=== PATIENT | female | born 1945 | race Hispanic/Latino ===

== ENCOUNTER 2024-02-22 10:22 | Observation (INO) | payer OTHER ==
[2024-02-21 11:16] LABS: Absolute Eosinophils 0.2 K/uL (0-0.5); Absolute Lymphocytes (CBC) 1.9 K/uL (0.7-4.9); Absolute Monocytes 0.4 K/uL (0.1-1.3); Absolute Neutrophil 4.2 K/uL (1.8-8.0); Basophils % 0.7 % (0-1.3); Eosinophils % 2.7 % (0-4.4); Hematocrit 40.3 % (36.0-45.0); Hemoglobin 13.3 g/dL (12.0-15.0); Lymphocytes % 28.5 % (15.3-44.8); MCH 29.4 pg (27.0-35.0); MCHC 33.1 g/dL (32.0-36.0); MCV 88.9 fL (80-100); MPV 8.5 fL (7.6-11.3); Monocytes % 6.1 % (3.3-12.3); Platelets 283 thou/uL (152-406); RBC Red Blood Cell Count 4.53 M/uL (3.86-4.86); Red Cell Distribution Width 13.9 % (12.1-15.2)
[2024-02-21 11:35] LABS: Specific Gravity 1.025 (1.005-1.030); Urine Bacteria None Seen /HPF (<20); Urine Bilirubin NEGATIVE (Negative); Urine Blood 1+ (Negative); Urine Clarity Extremely Turbid (Clear); Urine Color Yellow (Yellow); Urine Culture Reflex Order NOT NEEDED; Urine Glucose NEGATIVE (Negative); Urine Ketones NEGATIVE (Negative); Urine Microscopic Reflex YN ORDER UMIC; Urine Mucus 2+ /HPF (None Seen); Urine Nitrite NEGATIVE (Negative); Urine Protein TRACE (Negative); Urine Urobilinogen Normal (Normal); Urine WBC <5 /HPF (<5); Urine pH 5.5 (5.0-7.0)
[2024-02-21 11:39] LABS: Anion Gap 5.1 mEq/L (5.0-15.0); Potassium 4.1 mEq/L (3.5-5.1)
[2024-02-21 12:08] LABS: PT Prothrombin Time 12.1 SECONDS (9.5-12.5); Protime INR 1.1
--- NOTE | 2024-02-21 12:32 | EKG ---
Test Date: 2024-02-21 Test Time: 10:49:33 Fabric Lay Out Worker: TAYLOR MEASUREMENT RESULTS: Intervals: Rate: 74 NE: 146 QRSD: 80 QT: 378 QTc: 419 [place]: P: 56 NE: 146 QRS: -3 T: 32 INTERPRETIVE STATEMENTS: Normal sinus rhythm Possible Anterior infarct, age undetermined Abnormal ECG Compared to ECG 12/30/2016 09:24:44 Myocardial infarct finding now present Electronically Signed On 02-21-24 12:32:13 CDT by Bernard Boucher
[2024-02-22] MEDS: CEFAZOLIN SODIUM 1 GM/VIAL ONE (10:41)
[2024-02-22] MEDS: LIDOCAINE HCL/EPINEPHRINE 20 ML MDV ONE (10:41)
[2024-02-22] MEDS: Ringers Lactate 1,000 ML IV ONE ×2 (10:45→12:57)
[2024-02-22] MEDS: SCOPOLAMINE HYDROBROMIDE PATCH TD ONE (10:48)
[2024-02-22] MEDS ORDERED: LIDOCAINE 1% MPF 5 ML VIAL ONE (10:54)
[2024-02-22] MEDS ORDERED: dexAMETHasone 10 MG/ML VIAL ONE (10:54)
[2024-02-22] MEDS ORDERED: MIDAZOLAM HCL 2 MG/2 ML INJ ONE (10:54)
[2024-02-22] MEDS ORDERED: propofoL 200 MG/20 ML VIAL IV ONE (10:54)
[2024-02-22] MEDS ORDERED: FENTANYL CITR 100 MCG/2 ML ONE ×2 (10:54→13:05)
[2024-02-22] MEDS ORDERED: KETAMINE HCL IN 0.9 % NACL 50 MG/5 ML SYRINGE IV ONE (10:54)
[2024-02-22] MEDS ORDERED: ONDANSETRON 4 MG/2 ML VIAL ONE (10:54)
[2024-02-22] MEDS ORDERED: ROCURONIUM 50 MG/5 ML VIAL IV ONE (10:54)
[2024-02-22] MEDS: CEFAZOLIN SODIUM 2 GM/VIAL ONE (11:14)
[2024-02-22] MEDS: VASOPRESSIN 20 UNIT/ML VIAL ONE ×2 (11:15→11:23)
[2024-02-22] MEDS: NA CHLORIDE 0.9% 100 ML ONE (11:27)
[2024-02-22] MEDS ORDERED: EPHEDRINE SULF 50 MG/ML VIAL ONE (13:37)
[2024-02-22] MEDS ORDERED: ONDANSETRON 4 MG/2 ML VIAL IV PRN (15:32)
[2024-02-22] MEDS ORDERED: MORPHINE 2 MG/ML SYR IV PRN (15:32)
[2024-02-22] MEDS ORDERED: ACETAMINOPHEN 500 MG TAB PO PRN (15:32)
[2024-02-22] MEDS ORDERED: PROMETHAZINE INJ 25 MG/ML AMP IV PRN (15:32)
[2024-02-22] MEDS ORDERED: HYDROCODONE/APAP 5/325 MG TAB PO PRN (15:32)
--- NOTE | 2024-02-22 15:41 | P.BOP ---
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/YUMIKO Postoperative diagnosis: Same, posterior enterocele and perineocele Primary procedure: Anterior approach b/l SSLF cervical colpopexy,Ant repair w/biologic graft Secondary procedure: postwall/enterocele/perineocele repairs, TVT-O cyst Financial Accounting Manager: Capri Mcclure Estimated blood loss: 100 Specimen: None Findings: POP Q: +1/+2/0/6/moderate/10/0/-1/-4, perineocele, cysto neg Anesthesia: General Complications: None Drain(s): Urinary catheter, Other (vag pack) Implants: [place] dermis graft, TVT O Fluids & blood products: 1500 fluid, urine output 100 Transferred to: Recovery Room Condition: Good
--- OUTSIDE RECORDS SUMMARY | 2024-02-22 16:34 | XMS REPORT | Continuity of Care Document ---
Author Name Unknown Address [address] [place] [address] [address] [phone] [facility] thconnect Address [address] [facility] [address] [place] [address] Care Team Providers Care Hide Shaker Name Role Phone GC_GCBZW_Kadiyala_S Attending Clinician Kevin malone GC_GCBZW_Kadijenniea_S Admitting Clinician Kevin malone Payers Payer Name Policy Type Policy Number Effective Date Expirati on Date Source [employer] (MEDICARE REPLACEMENT/ADVANTAGE - PPO) [id number] Problems Condition Name Condition Details Condition Category Status Onset Date Resolution Date Last Treatment Date Treating Clinician Comments Source Cystocele Cystocele Problem Active 02-01 00:00: 00 [facility] Atrophic vaginitis Atrophic Vaginitis Problem Active 02-01 00:00: 00 [facility] Intertrigo Intertrigo Problem Active 02-01 00:00: 00 [facility] Osteoporos is Osteoporos is Problem Active 02-01 00:00: 00 [facility] Urge incontinen ce of urine Urge Incontinen ce of Urine Problem Active 02-01 00:00: 00 [facility] Social History Smoking Status Start Date Stop Date Source Never Smoker [facility] Medications Ordered Medication Name Filled Medication Name Start Date Stop Date Current Medication? Ordering Clinician Indication Dosage Frequency Signature (SIG) Comments Components Source estradiol 0.01% (0.1 mg/gram) vaginal cream Insert 0.5 g every day by vaginal route at bedtime for 90 days. estradiol 0.01% (0.1 mg/gram) vaginal cream Insert 0.5 g every day by vaginal route at bedtime for 90 days. No .5g Q1D estradiol 0.01% (0.1 mg/gram) vaginal cream Insert 0.5 g every day by vaginal route at bedtime for 90 days. [facility] Myrbetriq 50 mg tablet,exte nded release Take 1 tablet every day by oral route for 30 days. Myrbetriq 50 mg tablet,exte nded release Take 1 tablet every day by oral route for 30 days. No 1 Q1D Myrbetriq 50 mg tablet,ext ended release Take 1 tablet every day by oral route for 30 days. [facility] Flagyl 500 mg tablet Take 1 tablet every 12 hours by oral route for 7 days. Flagyl 500 mg tablet Take 1 tablet every 12 hours by oral route for 7 days. No 1 Q12H Flagyl 500 mg tablet Take 1 tablet every 12 hours by oral route for 7 days. [facility] gabapentin 100 mg capsule Take 1 capsule 3 times a day by oral route. gabapentin 100 mg capsule Take 1 capsule 3 times a day by oral route. No 1capsul e(s) TID gabapentin 100 mg capsule Take 1 capsule 3 times a day by oral route. [facility] levothyroxi ne 75 mcg tablet Take 1 tablet every day by oral route. levothyroxi ne 75 mcg tablet Take 1 tablet every day by oral route. No 1 Q1D levothyrox ine 75 mcg tablet Take 1 tablet every day by oral route. [facility] montelukast 10 mg tablet Take 1 tablet every day by oral route. montelukast 10 mg tablet Take 1 tablet every day by oral route. No 1 Q1D montelukas t 10 mg tablet Take 1 tablet every day by oral route. [facility] nystatin 100,000 unit/gram topical cream APPLY TO THE AFFECTED AREA(S) BY TOPICAL ROUTE 2 TIMES PER DAY nystatin 100,000 unit/gram topical cream APPLY TO THE AFFECTED AREA(S) BY TOPICAL ROUTE 2 TIMES PER DAY No nystatin 100,000 unit/gram topical cream APPLY TO THE AFFECTED AREA(S) BY TOPICAL ROUTE 2 TIMES PER DAY [facility] Vital Signs Vital Name Observation Time Observation Value Comments S ource BP Systolic 2024-02-06 00:00:00 164 mm[Hg] [facility] Body Weight 2024-02-06 00:00:00 162 [lb_av] [facility] BMI (Body Mass Index) 2024-02-06 00:00:00 29.6 kg/m2 [facility] Height 2024-02-06 00:00:00 62 [in_i] [facility] BP Diastolic 2024-02-06 00:00:00 82 mm[Hg] [facility] Height 2024-01-24 00:00:00 62 [in_i] [facility] BP Systolic 2024-01-24 00:00:00 167 mm[Hg] [facility] BP Diastolic 2024-01-24 00:00:00 88 mm[Hg] [facility] Body Weight 2024-01-24 00:00:00 162.6 [lb_av] [facility] BMI (Body Mass Index) 2024-01-24 00:00:00 29.7 kg/m2 [facility] Procedures Procedure Date / Time Performed Performing Clinicia n Source Transvaginal Us Non-ob 2024-02-02 00:00:00 [facility] US, transvaginal 2024-02-02 00:00:00 [facility] DEXA 2024-01-24 00:00:00 [facility] MAMMO, screening, digital, bilateral 2024-01-24 00:00:00 [facility] Radionuclide Scan of [place] Lymph Node of Breast 1997-11-13 00:00:00 [facility] Division of Varicose Vein of Lower Limb [facility] Cholecystectomy (Gallbladder) [facility] Plan of Care Planned Activity Planned Date Details Comments Source Future Appointment 2024-04-05 14:00:00 Lashon cuellar, [address], [place] [phone] [facility] Future Appointment 2024-02-29 09:30:00 Negar bustos, [address], [address] Medical Future Appointment 2024-02-26 08:30:00 Gcbzw Gcb shantel Law, [address], [place] [phone] [facility] Encounters Start Date/Time End Date/Time Encounter Type Admission Type Attending Clinicians Care Facility Care Department Encounter ID Source 2024-02-20 00:00:00 2024-02-20 00:00:00 Lashon Cope MD: [address], [place] [address] , Ph. GC_GCBZW_Roro jimenez_S [facility]_GCBZW_Evita rowe [place]* [id number] [facility] 2024-02-18 00:00:00 2024-02-18 00:00:00 Outpatient GC_GCBZW_Ka diyala_S [facility] [id number] [facility] 2024-02-13 00:00:00 2024-02-13 00:00:00 PARADISE Colin: [address], [place] [address] , Ph. GC_GCBZW_Ka diyala_S [facility] - GC_GCBZW_Evita rowe [place]* [id number] [facility] 2024-02-06 00:00:00 2024-02-06 00:00:00 Lashon Cope MD: [address], [place] [phone] , Ph. GC_GCBZW_Ka diyala_S [facility] - GC_GCBZW_Evita [facility]* [id number] [facility] 2024-02-02 00:00:00 2024-02-02 00:00:00 Lashon Cope MD: [address], [place] [phone] , Ph. GC_GCBZW_Ka diyala_S [facility] - GC_GCBZW_[facility]* [id number] [facility] 2024-01-29 00:00:00 2024-01-29 00:00:00 Outpatient GC_GCBZW_Ka diyala_S [facility] [id number] [facility] 2024-01-24 00:00:00 2024-01-24 00:00:00 PARADISE Colin: [address], [place] [phone] , Ph. GC_GCBZW_Ka diyala_S [facility] - GC_GCBZW_Evita [place]* [id number] [facility] 2024-01-24 00:00:00 2024-01-24 00:00:00 PARADISE Colin: [address], [place] [address] , Ph. [facility] - GC_GCBZW_Evita [place]* [id number] [facility] 2024-01-15 00:00:00 2024-01-15 00:00:00 Outpatient GC_GCBZW_Ka diyala_S [facility] PRIV [id number] [facility] 2024-01-11 00:00:00 2024-01-11 00:00:00 Outpatient GC_GCBZW_Ka diyala_S [facility] PRIV [id number] [facility] 2023-09-11 00:00:00 2023-09-11 00:00:00 Outpatient GC_GCBZW_Ka diyala_S [facility] PRIV [id number] [facility] Results Test Description Test Time Test Comments Results Result Co mments Source [facility] (dipstick) panel - [id number] 14:53:23* Test Item Value Reference Range Interpretation Comme nts Leukocytes (test code = Leukocytes) Negative Nitrite (test code = Nitrite) negative Urobilinogen (test code = Urobilinogen) Normal Protein (test code = Protein) Negative pH (test code = pH) 5.0 Blood (test code = Blood) Negative Specific [place] (test code = Specific [place]) 1.000 Ketone (test code = Ketone) Negative Bilirubin (test code = Bilirubin) Negative Glucose (test code = Glucose) Negative Appearance (test code = Appearance) Clear Color (test code = Color) Yellow [facility] panel - [id number] 14:53:23* Test Item Value Reference Range Interpretation Comme nts Leukocytes (test code = Leukocytes) Negative Nitrite (test code = Nitrite) negative Urobilinogen (test code = Urobilinogen) Normal Protein (test code = Protein) Negative pH (test code = pH) 5.0 Blood (test code = Blood) Negative Specific [place] (test code = Specific [place]) 1.000 Ketone (test code = Ketone) Negative Bilirubin (test code = Bilirubin) Negative Glucose (test code = Glucose) Negative Appearance (test code = Appearance) Clear Color (test code = Color) Yellow [facility]dip[facility] panel - [id number] 09:24:01* Test Item Value Reference Range Interpretation Comme nts Leukocytes (test code = Leukocytes) Negative Nitrite (test code = Nitrite) negative Urobilinogen (test code = Urobilinogen) Normal Protein (test code = Protein) Negative pH (test code = pH) 6.0 Blood (test code = Blood) Negative Specific [place] (test code = Specific [place]) 1.015 Ketone (test code = Ketone) Negative Bilirubin (test code = Bilirubin) Negative Glucose (test code = Glucose) Negative Appearance (test code = Appearance) Clear Color (test code = Color) Yellow [facility] macro (dipstick) panel - [id number] 09:24:01* Test Item Value Reference Range Interpretation Comme nts Leukocytes (test code = Leukocytes) Negative Nitrite (test code = Nitrite) negative Urobilinogen (test code = Urobilinogen) Normal Protein (test code = Protein) Negative pH (test code = pH) 6.0 Blood (test code = Blood) Negative Specific [place] (test code = Specific [place]) 1.015 Ketone (test code = Ketone) Negative Bilirubin (test code = Bilirubin) Negative Glucose (test code = Glucose) Negative Appearance (test code = Appearance) Clear Color (test code = Color) Yellow [facility] (dipstick) panel - [id number] 09:24:01* Test Item Value Reference Range Interpretation Comme nts Leukocytes (test code = Leukocytes) Negative Nitrite (test code = Nitrite) negative Urobilinogen (test code = Urobilinogen) Normal Protein (test code = Protein) Negative pH (test code = pH) 6.0 Blood (test code = Blood) Negative Specific [place] (test code = Specific [place]) 1.015 Ketone (test code = Ketone) Negative Bilirubin (test code = Bilirubin) Negative Glucose (test code = Glucose) Negative Appearance (test code = Appearance) Clear Color (test code = Color) Yellow [facility] (dipstick) panel - [id number] 09:24:01* Test Item Value Reference Range Interpretation Comme nts Leukocytes (test code = Leukocytes) Negative Nitrite (test code = Nitrite) negative Urobilinogen (test code = Urobilinogen) Normal Protein (test code = Protein) Negative pH (test code = pH) 6.0 Blood (test code = Blood) Negative Specific [place] (test code = Specific [place]) 1.015 Ketone (test code = Ketone) Negative Bilirubin (test code = Bilirubin) Negative Glucose (test code = Glucose) Negative Appearance (test code = Appearance) Clear Color (test code = Color) Yellow [facility], LB + [id number] 00:00:00* Test Item Value Reference Range Interpretation Comme nts Pap, liquid-based (test code = Pap, liquid-based) nilm nilm HPV high risk DNA (non 16/18 ) (test code = HPV high risk DNA (non 16/18)) not detected not detected HPV high risk DNA type 16 (t est code = HPV high risk DNA type 16) not detected not detected HPV high risk DNA type 18 (t est code = HPV high risk DNA type 18) not detected not detected [facility] + [id number] 00:00:00* Test Item Value Reference Range Interpretation Comme nts Pap, liquid-based (test code = Pap, liquid-based) nilm nilm HPV high risk DNA (non 16/18 ) (test code = HPV high risk DNA (non 16/18)) not detected not detected HPV high risk DNA type 16 (t est code = HPV high risk DNA type 16) not detected not detected HPV high risk DNA type 18 (t est code = HPV high risk DNA type 18) not detected not detected [facility], LB + [id number] 00:00:00* Test Item Value Reference Range Interpretation Comme nts Pap, liquid-based (test code = Pap, liquid-based) nilm nilm HPV high risk DNA (non 16/18 ) (test code = HPV high risk DNA (non 16/18)) not detected not detected HPV high risk DNA type 16 (t est code = HPV high risk DNA type 16) not detected not detected HPV high risk DNA type 18 (t est code = HPV high risk DNA type 18) not detected not detected [facility], LB + [id number] 00:00:00* Test Item Value Reference Range Interpretation Comme nts Pap, liquid-based (test code = Pap, liquid-based) nilm nilm HPV high risk DNA (non 16/18 ) (test code = HPV high risk DNA (non 16/18)) not detected not detected HPV high risk DNA type 16 (t est code = HPV high risk DNA type 16) not detected not detected HPV high risk DNA type 18 (t est code = HPV high risk DNA type 18) not detected not detected [facility] LB + [id number] 00:00:00* Test Item Value Reference Range Interpretation Comme nts Pap, liquid-based (test code = Pap, liquid-based) nilm nilm HPV high risk DNA (non 16/18 ) (test code = HPV high risk DNA (non 16/18)) not detected not detected HPV high risk DNA type 16 (t est code = HPV high risk DNA type 16) not detected not detected HPV high risk DNA type 18 (t est code = HPV high risk DNA type 18) not detected not detected [facility] - [id number] 00:00:00* Test Item Value Reference Range Interpretation Comme nts bacteria, urine (test code = bacteria, urine) few none-few blood, urine (test code = bl ood, urine) negative negative bilirubin, urine (test code = bilirubin, urine) negative negative cast, granular, ur (test cod e = cast, granular, ur) not present not present cast, hyaline, urine (test c ode = cast, hyaline, urine) not present not present cast, RBC, urine (test code = cast, RBC, urine) not present not present character (test code = character) clear clear color (test code = color) yellow yellow crystals urine (test code = crystals urine) none none epithelial cells, ur (test c ode = epithelial cells, ur) many none-few A glucose, urine (test code = glucose, urine) negative negative ketone, urine (test code = ketone, urine) negative negative leukocyte esterase (test cod e = leukocyte esterase) small negative A nitrites urine (test code = nitrites urine) negative negative pH urine (test code = pH urine) 6.0 5.0-8.0 protein, urine (test code = protein, urine) negative negative RBC, urine (test code = RBC, urine) 0-2 0-2 specific gravity ur (test co de = specific gravity ur) 1.017 1.003-1.030 urobilinogen urine (test cod e = urobilinogen urine) 0.2 mg/dL 0.2-1.0 WBC, urine (test code = WBC, urine) 0-5 0-5 [facility] Culture panel - [id number] 00:00:00* Test Item Value Reference Range Interpretation Comme nts bacteria, urine (test code = bacteria, urine) few none-few blood, urine (test code = bl ood, urine) negative negative bilirubin, urine (test code = bilirubin, urine) negative negative cast, granular, ur (test cod e = cast, granular, ur) not present not present cast, hyaline, urine (test c ode = cast, hyaline, urine) not present not present cast, RBC, urine (test code = cast, RBC, urine) not present not present character (test code = character) clear clear color (test code = color) yellow yellow crystals urine (test code = crystals urine) none none epithelial cells, ur (test c ode = epithelial cells, ur) many none-few A glucose, urine (test code = glucose, urine) negative negative ketone, urine (test code = ketone, urine) negative negative leukocyte esterase (test cod e = leukocyte esterase) small negative A nitrites urine (test code = nitrites urine) negative negative pH urine (test code = pH urine) 6.0 5.0-8.0 protein, urine (test code = protein, urine) negative negative RBC, urine (test code = RBC, urine) 0-2 0-2 specific gravity ur (test co de = specific gravity ur) 1.017 1.003-1.030 urobilinogen urine (test cod e = urobilinogen urine) 0.2 mg/dL 0.2-1.0 WBC, urine (test code = WBC, urine) 0-5 0-5 [facility] Culture panel - [id number] 00:00:00* Test Item Value Reference Range Interpretation Comme nts bacteria, urine (test code = bacteria, urine) few none-few blood, urine (test code = bl ood, urine) negative negative bilirubin, urine (test code = bilirubin, urine) negative negative cast, granular, ur (test cod e = cast, granular, ur) not present not present cast, hyaline, urine (test c ode = cast, hyaline, urine) not present not present cast, RBC, urine (test code = cast, RBC, urine) not present not present character (test code = character) clear clear color (test code = color) yellow yellow crystals urine (test code = crystals urine) none none epithelial cells, ur (test c ode = epithelial cells, ur) many none-few A glucose, urine (test code = glucose, urine) negative negative ketone, urine (test code = ketone, urine) negative negative leukocyte esterase (test cod e = leukocyte esterase) small negative A nitrites urine (test code = nitrites urine) negative negative pH urine (test code = pH urine) 6.0 5.0-8.0 protein, urine (test code = protein, urine) negative negative RBC, urine (test code = RBC, urine) 0-2 0-2 specific gravity ur (test co de = specific gravity ur) 1.017 1.003-1.030 urobilinogen urine (test cod e = urobilinogen urine) 0.2 mg/dL 0.2-1.0 WBC, urine (test code = WBC, urine) 0-5 0-5 [facility] panel - [id number] 00:00:00* Test Item Value Reference Range Interpretation Comme nts bacteria, urine (test code = bacteria, urine) few none-few blood, urine (test code = bl ood, urine) negative negative bilirubin, urine (test code = bilirubin, urine) negative negative cast, granular, ur (test cod e = cast, granular, ur) not present not present cast, hyaline, urine (test c ode = cast, hyaline, urine) not present not present cast, RBC, urine (test code = cast, RBC, urine) not present not present character (test code = character) clear clear color (test code = color) yellow yellow crystals urine (test code = crystals urine) none none epithelial cells, ur (test c ode = epithelial cells, ur) many none-few A glucose, urine (test code = glucose, urine) negative negative ketone, urine (test code = ketone, urine) negative negative leukocyte esterase (test cod e = leukocyte esterase) small negative A nitrites urine (test code = nitrites urine) negative negative pH urine (test code = pH urine) 6.0 5.0-8.0 protein, urine (test code = protein, urine) negative negative RBC, urine (test code = RBC, urine) 0-2 0-2 specific gravity ur (test co de = specific gravity ur) 1.017 1.003-1.030 urobilinogen urine (test cod e = urobilinogen urine) 0.2 mg/dL 0.2-1.0 WBC, urine (test code = WBC, urine) 0-5 0-5 [facility] Culture panel - [id number] 00:00:00* Test Item Value Reference Range Interpretation Comme nts bacteria, urine (test code = bacteria, urine) few none-few blood, urine (test code = bl ood, urine) negative negative bilirubin, urine (test code = bilirubin, urine) negative negative cast, granular, ur (test cod e = cast, granular, ur) not present not present cast, hyaline, urine (test c ode = cast, hyaline, urine) not present not present cast, RBC, urine (test code = cast, RBC, urine) not present not present character (test code = character) clear clear color (test code = color) yellow yellow crystals urine (test code = crystals urine) none none epithelial cells, ur (test c ode = epithelial cells, ur) many none-few A glucose, urine (test code = glucose, urine) negative negative ketone, urine (test code = ketone, urine) negative negative leukocyte esterase (test cod e = leukocyte esterase) small negative A nitrites urine (test code = nitrites urine) negative negative pH urine (test code = pH urine) 6.0 5.0-8.0 protein, urine (test code = protein, urine) negative negative RBC, urine (test code = RBC, urine) 0-2 0-2 specific gravity ur (test co de = specific gravity ur) 1.017 1.003-1.030 urobilinogen urine (test cod e = urobilinogen urine) 0.2 mg/dL 0.2-1.0 WBC, urine (test code = WBC, urine) 0-5 0-5 [facility]dipstick[facility] panel - [id number] 13:40:00* Test Item Value Reference Range Interpretation Comme nts Leukocytes (test code = Leukocytes) Negative Nitrite (test code = Nitrite) negative Urobilinogen (test code = Urobilinogen) Normal Protein (test code = Protein) Negative pH (test code = pH) 6.0 Blood (test code = Blood) Non-Hemolyzed: Trace Specific [place] (test code = Specific [place]) 1.020 Ketone (test code = Ketone) Negative Bilirubin (test code = Bilirubin) Negative Glucose (test code = Glucose) Negative Appearance (test code = Appearance) Slightly Cloudy Color (test code = Color) Yellow [facility] (dipstick) panel - [id number] 13:40:00* Test Item Value Reference Range Interpretation Comme nts Leukocytes (test code = Leukocytes) Negative Nitrite (test code = Nitrite) negative Urobilinogen (test code = Urobilinogen) Normal Protein (test code = Protein) Negative pH (test code = pH) 6.0 Blood (test code = Blood) Non-Hemolyzed: Trace Specific [place] (test code = Specific [place]) 1.020 Ketone (test code = Ketone) Negative Bilirubin (test code = Bilirubin) Negative Glucose (test code = Glucose) Negative Appearance (test code = Appearance) Slightly Cloudy Color (test code = Color) Yellow [facility] (dipstick) panel - [id number] 13:40:00* Test Item Value Reference Range Interpretation Comme nts Leukocytes (test code = Leukocytes) Negative Nitrite (test code = Nitrite) negative Urobilinogen (test code = Urobilinogen) Normal Protein (test code = Protein) Negative pH (test code = pH) 6.0 Blood (test code = Blood) Non-Hemolyzed: Trace Specific [place] (test code = Specific [place]) 1.020 Ketone (test code = Ketone) Negative Bilirubin (test code = Bilirubin) Negative Glucose (test code = Glucose) Negative Appearance (test code = Appearance) Slightly Cloudy Color (test code = Color) Yellow [facility] (dipstick) panel - [id number] 13:40:00* Test Item Value Reference Range Interpretation Comme nts Leukocytes (test code = Leukocytes) Negative Nitrite (test code = Nitrite) negative Urobilinogen (test code = Urobilinogen) Normal Protein (test code = Protein) Negative pH (test code = pH) 6.0 Blood (test code = Blood) Non-Hemolyzed: Trace Specific [place] (test code = Specific [place]) 1.020 Ketone (test code = Ketone) Negative Bilirubin (test code = Bilirubin) Negative Glucose (test code = Glucose) Negative Appearance (test code = Appearance) Slightly Cloudy Color (test code = Color) Yellow [facility] macro (dipstick) panel - [id number] 13:40:00* Test Item Value Reference Range Interpretation Comme nts Leukocytes (test code = Leukocytes) Negative Nitrite (test code = Nitrite) negative Urobilinogen (test code = Urobilinogen) Normal Protein (test code = Protein) Negative pH (test code = pH) 6.0 Blood (test code = Blood) Non-Hemolyzed: Trace Specific [place] (test code = Specific [place]) 1.020 Ketone (test code = Ketone) Negative Bilirubin (test code = Bilirubin) Negative Glucose (test code = Glucose) Negative Appearance (test code = Appearance) Slightly Cloudy Color (test code = Color) Yellow [facility] macro (dipstick) panel - [id number] 13:40:00* Test Item Value Reference Range Interpretation Comme nts Leukocytes (test code = Leukocytes) Negative Nitrite (test code = Nitrite) negative Urobilinogen (test code = Urobilinogen) Normal Protein (test code = Protein) Negative pH (test code = pH) 6.0 Blood (test code = Blood) Non-Hemolyzed: Trace Specific [place] (test code = Specific [place]) 1.020 Ketone (test code = Ketone) Negative Bilirubin (test code = Bilirubin) Negative Glucose (test code = Glucose) Negative Appearance (test code = Appearance) Slightly Cloudy Color (test code = Color) Yellow [employer]
[2024-02-22] MEDS ORDERED: IBUPROFEN 600 MG TAB PO PRN (16:42)
[2024-02-22] MEDS: HEPARIN 5000 UNIT/ML 1 ML VIAL SQ SCH (18:18)
[2024-02-22] MEDS: Ringers Lactate 1,000 ML IV SCH (18:19)
[2024-02-22] MEDS: metroNIDAZOLE 500 MG TABLET PO SCH (22:04)
[2024-02-22] MEDS: GABAPENTIN 100 MG CAP PO SCH (22:04)
[2024-02-22] MEDS: NYSTATIN 100MU/GM CREAM 15GM TOP SCH (22:05)
[2024-02-23 02:43] VITALS: O2SAT 97
--- NOTE | 2024-02-23 04:33 | OP ---
Date of Procedure: 02/22/2024 Surgeon: Lashon Cope MD Hardwood Floor Finisher: Capri Cline Preoperative Diagnoses: Stage III incomplete uterovaginal prolapse, posterior wall and anterior wall defects, stress urinary incontinence. Postoperative Diagnoses: Stage III incomplete uterovaginal prolapse, posterior wall and anterior wal l defects, stress urinary incontinence, posterior enterocele and perineocele. Procedures Performed: 1.Anterior approach, bilateral sacrospinous ligament fixation, cervical colpopexy. 2.Anterior wall repair with biologic graft augmentation. 3.Posterior wall repair, posterior enterocele repair, and perineocele repair. 4.Transobturator midurethral sling (TVT-O), cystoscopy. Anesthesia: General endotracheal. Estimated Blood Loss: 100 Urine Output: 100 Fluids: 1500 Specimens: No specimens. Complications: No complications. Drains: Gresham catheter and vaginal packing. Findings: POP-Q +1, +2, 0, 6, moderate, 10, 0, -1, -4. Perineocele. Cystoscopy was negative. No f oreign body, mesh, or trauma. Both ureteric orifices showed strong jets of urine. Condition: Stable. Implants: [place] Dermis graft and TVT-O. Indications: The patient is a 78-year-old female in good health, has had vaginal prolapse and bulge symptoms for a few years and has become significantly worse, has mixed urinary incontinence, mostly u rgency symptoms. She has been evaluated with transvaginal ultrasound, where her uterus appeared to b e unremarkable, endometrial thin. She has no postmenopausal bleeding or any other pelvic pain compla ints. Urodynamics showed a possible occult YUMIKO, although maximal urethral closure pressure was chace l. Her symptomatology is consistent with mixed incontinence. Cystoscopy was negative for any tumors . After we discussed about the pessary surgery, including laparoscopic repair with removal of uterus, Y mesh repair, vaginal repair with uterine preservation, and anterior-posterior defect repairs using b iologic graft augmentation, the patient was explained all the benefits and risks and the long-term re currence rates and complications, she consented for vaginal repair. Procedure In Detail: After informed consent was re-verified in the preoperative area, she was taken back to the OR. She was placed in a supine fashion on the operating table. General anesthesia was g iven. She was placed in a dorsal lithotomy position in Anirudh stirrups. Lower abdomen, vulva, vagina , perineum, medial thighs, and perianal area were all prepped and draped in a sterile fashion. Gresham was placed to drain the bladder and clamped with a Lissa clamp. Then, a POP-Q was performed as dict ated above. Plan is to perform anterior repair and anterior approach apical fixation. A midline anterior wall incision was made after injecting dilute vasopressin. A 15 blade used to sta rt the incision and incision extended with the help of Metzenbaum scissors all the way down to the UV J and all the way up to the cervix, then lateral flaps were opened up and bladder was dissected to th e paravaginal spaces on both sides. Cervix was dissected and exposed for anchoring the graft and the n the UVJ. The remnant of the anterior wall connective tissue was dissected and exposed. The sacros pinous ligament was cleaned up after palpating the ischial spine, and sweeping medial and posterior t o it towards the spine and then lateral and superior towards the white line. The arcus was exposed. Once all these were dissected, the Capio device was taken with a Prolene stitch and mid ligament on t he anterior surface of the right sacrospinous bite was taken and then PDS was used for the white line on the right side. Then, similarly Prolene on the left, I had to replace it because the first bite was closer to the spine. It was placed at least 2 cm medial and posterior. Then, the left anterolat eral white line bite was taken. Once all the sutures were retracted on clamps and hung onto the self -retaining retractor, the 8 x 6 graft was taken and fashioned into a trapezoid of 8 x 6 x 5, and this was marked appropriately in the midline and also for the cervical bites as well as the distal bites in the paravaginal anchor stitch location. This was soaked according to package directions and then brought back into the field. 2-0 PDS sutures x3 were placed on the cervix, one in the center and one on either sides. Similarly, the distal portion of the anterior wall connective tissue, three suture s were placed and the graft was attached in the midline, first to the cervix, then to the UVJ. Then, I took the graft sutures on the sacrospinous ligament, which were anchored to the graft with a pulle y stitch and then tied back down. Then, the PDS sutures were anchored in the location that was marke d for them and then tied down to the white line. There was excellent lift on the right and left apex . Excellent lift on the left lateral wall. On the right lateral wall, there was slightly a bulge st ill, but very insignificant and the anterior wall was completely taken back to Ba of -3 and Aa of -3. The vaginal epithelium was slightly trimmed and the vaginal incision was closed in a continuous runni ng fashion with 2-0 Vicryl sutures. Midurethral area was picked up with 2 Allis clamps and dilute vasopressin was injected. Then, a midl ine incision was made 1.5 cm and dissected underneath the fascia to the ipsilateral obturator space a nd after the obturator membrane was perforated, the track was expanded by opening up with scissors. Same was done on the opposite side on the left side. The wing guide was taken and inserted. Tavon w as used to pass the plastic dilator through the obturator membrane and then hugging the inferior pubi c ramus exiting lateral to the groin fold at the level of the external meatus. Plastic dilator was p ulled out. The sheath and the mesh were clamped with a Lissa and the dilator cut out. Similar pass taken on the opposite side. Then, once both were placed without any problems, mesh was tensioned und er the urethra with the help of Metzenbaum scissors. Sheaths were removed. Mesh cut flush with the skin. The skin was closed with Dermabond. Mesh irrigated with antibiotic solution and closed with t he help of continuous running 3-0 Vicryl. The Gresham was removed. Cystoscopy was performed through t he urethra watching the posterior wall. Then, both ureteric orifices were visualized. I had strong jets of urine from both. Then laterally, the areas of the bladder were inspected for any perforation or injury from the mesh. This was all completely negative. Then, bladder was drained. Gresham was r eplaced. Posterior repair was done. The posterior wall and the perineum were injected with dilute vasopressin . Then, a francie-shaped incision was made starting in the posterior vaginal wall in the lower one-t hird, coming down to a narrow way, and then making another upright way on the perineum. Perineal ski n and the vaginal epithelium on the distal posterior wall were deepithelialized. Connective tissue w as exposed and the defect was very clearly exposed. There was a superior defect. Once the enterocel e was dissected on the top all the way, I could visualize the enterocele that was detached from the p roximal pole wall of the rectovaginal septum from the apex, which is a site-specific defect, would be a very complex repair and I did not believe that she needed a biologic graft at this point. The ent erocele was reduced with the help of 3-0 Monocryl suture in a pursestring fashion x2. Then, the post erior fascia was repaired on the very apex with the help of PDS suture in [id number] fashion. T hen 2-0 Vicryl was then taken and the site-specific defect was repaired, mostly torn towards the righ t side and complete detachment of the perineum, and there was a perineocele, so 2-0 Vicryl was used a ll the way down to the level above the perineal body. Here, the suture was held on a clamp. Attention was directed to the repair of the perineocele. All the way dissection was done to the exte rnal sphincter and all the layers were nicely dissected from both sides, especially the defect was mu ch more extensive on the right side and there was more scar. Once this was released and I was able t o visualize, the repair here done with interrupted 2-0 Vicryl and then continuous running 2-0 Vicryl. Once the perineal body reconstruction was performed and the perineum was reconstructed, then the 2- 0 Vicryl suture for the posterior wall was used to re-connect with the newly reconstructed perineal b dean. Once this suture was completed and knot was tied, then the posterior wall was closed after trim jacinta the epithelium slightly. A continuous running locked 2-0 Vicryl suture was used to close this a nd 3-0 Vicryl was used to close the perineum in 2 layers. Rectal exam negative. Vaginal packing was done. Instrument, needle, and sponge counts were correct at the end of the case. The patient filiberto ated the procedure well. She was recovered from anesthesia and taken to PACU in stable condition. H er daughter was debriefed about her procedure. She will be admitted overnight for observation. Fole y and packing will be removed at 6 a.m. for voiding trial, and she will be discharged home after that. JOHN Voice ID: [id number] Report ID: [id number]
[2024-02-23] MEDS: LEVOTHYROXINE SOD 0.075 MG TAB PO SCH (06:07)
[2024-02-23 07:02] LABS: Hemoglobin 12.8 g/dL (12.0-15.0); MCHC 32.5 g/dL (32.0-36.0)
[2024-02-23 07:16] LABS: Absolute Lymphocytes (CBC) 1.5 K/uL (0.7-4.9); Absolute Monocytes 0.9 K/uL (0.1-1.3); Absolute Neutrophil 14.1 K/uL (1.8-8.0); Basophils % 0.3 % (0-1.3); Hematocrit 39.4 % (36.0-45.0); Lymphocytes % 8.9 % (15.3-44.8); MCH 28.5 pg (27.0-35.0); MCV 87.9 fL (80-100); MPV 9.6 fL (7.6-11.3); Monocytes % 5.6 % (3.3-12.3); Neutrophils % 85.2 % (41.7-73.7); Platelets 133 thou/uL (152-406); RBC Red Blood Cell Count 4.48 M/uL (3.86-4.86)
[2024-02-23] MEDS: MONTELUKAST 10 MG TAB PO SCH (08:15)
[2024-02-23 08:58] LABS: White Blood Cell Scan OK (OK)
[2024-02-23 08:59] LABS: Blood Morphology Comment NOT SEEN (NOT SEEN); Platelet Estimate DECR
[2024-02-23 17:10] VITALS: BP 181/79; TEMP 97.5
== END 2024-02-23 17:45 | disposition home or self-care (01) ==
LOC: OR 10:22 → 4TH 16:30
PROVIDERS: ADMIT Obstetrics & Gynecology; ATTEND Obstetrics & Gynecology
PROC: 0JUC0JZ Supplement of Pelvic Region Subcutaneous Tissue and Fascia with Synthetic Substitute, Open Approach (ICD-10-PCS; 2024-02-22)
PROC: 0JQC0ZZ Repair Pelvic Region Subcutaneous Tissue and Fascia, Open Approach (ICD-10-PCS; 2024-02-22)
PROC: 0HQ9XZZ Repair Perineum Skin, External Approach (ICD-10-PCS; 2024-02-22)
PROC: 0TSD0ZZ Reposition Urethra, Open Approach (ICD-10-PCS; 2024-02-22)
PROC: 0USG0ZZ Reposition Vagina, Open Approach (ICD-10-PCS; principal; 2024-02-22 13:00)
DX: N81.3 Complete uterovaginal prolapse (principal); N39.46 Mixed incontinence; Z85.3 Personal history of malignant neoplasm of breast; K80.20 Calculus of gallbladder without cholecystitis without obstruction; D68.9 Coagulation defect, unspecified
CPT/HCPCS: 93005; 85025 ×2; 81001; 80048; 36415 ×2; 86900; 86850; 85610; 86901; 85730; 57282; 57250; 57240; 57267; 57288; G0379; J1644 ×3; J2704; J2001; J3010 ×2; J1100; J2405; J7120 ×5; J0690; G0378 ×2; J2250